=== PATIENT | female | born 1995 | race Caucasian/White ===

== ENCOUNTER 2018-06-06 14:40 | Emergency (ER) | payer MEDICAID ==
[~2018-06-06] VITALS: Ht 170.2 cm; Wt 111.6 kg
[2018-06-06 14:43] VITALS: BP 161/93
[2018-06-06] MEDS ORDERED: PENI500T2 PO (17:01)
== END 2018-06-06 17:26 | disposition home or self-care (01) ==
LOC: ER 14:41
DX: J02.0 Streptococcal pharyngitis (principal); J45.909 Unspecified asthma, uncomplicated; Z79.899 Other long term (current) drug therapy
CPT/HCPCS: 87880; 99283

== ENCOUNTER 2019-02-04 16:56 | Emergency (ER) | payer MEDICAID ==
[~2019-02-04] VITALS: Ht 165.1 cm; Wt 88.0 kg
[2019-02-04 18:12] LABS: URINE HCG NEGATIVE (NEG)
[2019-02-04 18:13] VITALS: BP 121/70
[2019-02-04 18:14] LABS: CLARITY,URINE CLEAR (Clear); COLOR,URINE YELLOW (Yellow); GLUCOSE, URINE NEGATIVE (Neg); KETONES,URINE NEGATIVE (Neg); LEUKOCYTE ESTERASE ,URINE NEGATIVE (Neg); NITRITES, URINE NEGATIVE (Neg); OCCULT BLOOD,URINE NEGATIVE (Neg); PROTEIN,URINE NEGATIVE (Neg); UROBILINOGEN,URINE 0.2 E.U/dL (0.2-1.0)
[2019-02-04 18:15] LABS: UA COLLECTION TYPE CLN CATCH MIDSTREAM
== END 2019-02-04 19:56 | disposition left against medical advice (07) ==
LOC: ER 16:57
DX: N93.8 Other specified abnormal uterine and vaginal bleeding (principal); J45.909 Unspecified asthma, uncomplicated
CPT/HCPCS: 36415; 81003; 81025; 84702; 99283